=== PATIENT | female | born 1950 | race Caucasian/White ===

== ENCOUNTER 2017-10-07 21:00 | Emergency (ER) | payer MEDICARE, OTHER ==
[2017-10-07] MEDS ORDERED: Famotidine IV* 10 MG/ML 2 ML (20 mg) IV ONE (21:24)
[2017-10-07] MEDS ORDERED: Al Hydrox/Mg Hydrox/Simet LIQ* 30 ML UDC PO ONE (21:24)
[2017-10-07] MEDS ORDERED: Lidocaine 2% VISCOUS* 15 ML UDC PO ONE (21:24)
[2017-10-07 22:00] LABS: ABS Basophils 0.1 10^3/ul (0-0.2); ABS Eosinophils 0.1 10^3/ul (0-0.6); ABS Lymphocytes 2.3 10^3/ul (1.0-4.8); ABS Monocytes 1.4 10^3/ul (0-0.8); ABS Neutrophils 11.9 10^3/ul (1.5-7.7); ABS Nucleated RBC 0 10^3/ul; Eosinophil % 0.5 % (0-6); Hematocrit 41 % (35-47); Hemoglobin 14.1 g/dl (12.0-16.0); Lymphocyte % 14.4 % (25-47); Mean Corpuscular HGB Conc 34 g/dl (31-36); Mean Corpuscular Hemoglobin 31 pg (27-31); Mean Corpuscular Volume 89 fL (80-97); Mean Platelet Volume 8.7 um3 (7.4-10.4); Nucleated Red Blood Cells % 0; Platelet Count 289 10^3/ul (150-450); Red Cell Distribution Width 14 % (10.5-15); White Blood Count 15.8 10^3/ul (3.5-10.8)
[2017-10-07 22:20] LABS: EGFR Non-African American 65.6 (>60)
[2017-10-07] MEDS ORDERED: Ketorolac INJ* 30 MG/ML 1 ML VIAL IV PUSH ONE (22:43)
[2017-10-07] MEDS ORDERED: Morphine INJ* 2 MG/ML 1 ML CARPUJECT IV ONE (22:43)
[2017-10-07] MEDS ORDERED: Ondansetron INJ* 2 MG/ML VIAL ONE (23:37)
[2017-10-07] MEDS ORDERED: Ondansetron INJ* 2 MG/ML VIAL IV ONE (23:39)
[2017-10-08] MEDS ORDERED: Iohexol 300* (CONTRAST) 10 ML SDV IV ONE (00:37)
[2017-10-08 00:46] LABS: Urine Appearance Cloudy; Urine Blood Negative (Negative); Urine Color Amber; Urine Ketones Negative (Negative); Urine Protein Negative (Negative); Urine Specific Gravity 1.018 (1.010-1.030); Urine Urobilinogen Positive (Negative)
[2017-10-08 02:51] VITALS: BP 133/69
--- NOTE | 2017-10-08 10:18 | RAD ---
INDICATION: Syncopal episode. Midsternal chest and abdominal pain. History of uterine cancer. Post hysterectomy. COMPARISON: No relevant prior exams available on the [facility] PACS for comparison. TECHNIQUE: Multidetector CT images were obtained from the lung bases to the ischial tuberosities with 100 mL Omnipaque 300 IV contrast. Multiplanar reformation. REPORT: Unremarkable visualized inferior thorax. Decreased density of the liver consistent with fatty infiltration. Post cholecystectomy likely accounting for minimal intra and extrahepatic biliary dilatation. Alternatively seen medially directed diverticulum from the second segment of the duodenum may result in mass effect on the common bile duct accounting for the mild biliary dilatation. No focal hepatic lesions evident. Unremarkable pancreas and spleen. Negative for CT abnormality of the upper GI, small bowel, or retrocecal appendix. Mild colonic diverticulosis without findings of diverticulitis. Negative for ascites, free air, or significant hernias. Normal adrenal glands. Symmetric nephrograms. No focal renal lesions or hydronephrosis. Unremarkable nondilated ureters and largely decompressed urinary bladder. Post hysterectomy. Unremarkable adnexal regions. Negative for lymphadenopathy. Atherosclerotic calcification of normal diameter abdominal aorta and iliac arteries. Physiologic distention of the IVC. Lumbar sacral spine degenerative spondylosis and facet joint osteoarthritis. Negative for suspicious osseous lesions. IMPRESSION: 1. Fatty infiltration of the liver. 2. Post cholecystectomy likely accounting for minimal intra and extrahepatic biliary dilatation. Alternatively seen medially directed diverticulum from the second segment of the duodenum may result in mass effect on the common bile duct accounting for the mild biliary dilatation. 3. Normal appendix documented. Colonic diverticulosis without findings of diverticulitis. 4. Negative for obstructive uropathy. 5. Negative for lymphadenopathy or suspicious osseous lesions.
--- NOTE | 2017-10-12 22:52 | ED ---
Vincent Alonzo Sixian, scribed for Spike Chairez MD on 10/07/17 at 2126 . Abdominal Pain/Female - HPI Summary HPI Summary: This patient is a 66 year old F presenting to ED with a chief complaint of abdominal pain since earlier today. The CC is described as sharp pain, radiating in a square. The patient rates the pain 2/10 in severity. Symptoms aggravated and alleviated by nothing. Patient reports vomiting and a syncopal episode. Patient denies nausea. The pt has had 3 similar episodes this month, making her pass right out. She also had one drink at 1700 today. - History of Current Complaint Chief Complaint: EDAbdPain Stated Complaint: ABD PAIN Time Seen by Provider: 10/07/17 21:06 Hx Obtained From: Patient Hx Last Menstrual Period: menopausal Onset/Duration: Sudden Onset, Lasting Hours, Still Present Timing: Constant Severity Currently: Mild Pain Intensity: 2 Pain Scale Used: 0-10 Numeric Character: Sharp Aggravating Factor(s): Nothing Alleviating Factor(s): Nothing Associated Signs and Symptoms: Positive: Other: - . Patient reports vomiting and a syncopal episode. Patient denies nausea. Allergies/Adverse Reactions: Allergies Allergy/AdvReac Type Severity Reaction Status Date / Time MS Acetaminophen Allergy See Comment Verified 06/23/16 18:33 [From Percocet] MS Atorvastatin Allergy Muscle Ache Verified 06/23/16 18:35 [From Lipitor] MS Codeine [Codeine] Allergy Dizziness Verified 06/23/16 18:34 MS Oxycodone [From Percocet] Allergy See Comment Verified 06/23/16 18:33 PMH/Surg Hx/FS Hx/Imm Hx Endocrine/Hematology History: Reports: Hx Anticoagulant Therapy - She takes a baby aspirin daily., Hx Thyroid Disease Denies: Hx Diabetes Cardiovascular History: Reports: Hx Hypertension Denies: Hx Congestive Heart Failure, Hx Deep Vein Thrombosis, Hx Myocardial Infarction, Hx Pacemaker/ICD Respiratory History: Reports: Hx Asthma - She does not take her inhaler on a regular basis. Denies: Hx Chronic Obstructive Pulmonary Disease (COPD), Hx Lung Cancer, Hx Pneumonia, Hx Pulmonary Embolism GI History: Denies: Hx Gall Bladder Disease, Hx Gastrointestinal Bleed, Hx Ulcer, Hx Urosepsis History: Denies: Hx Kidney Stones, Hx Renal Disease Sensory History: Denies: Hx Hearing Aid Neurological History: Denies: Hx Dementia, Hx Migraine, Hx Seizures, Hx Transient Ischemic Attacks (TIA) Psychiatric History: Denies: Hx Anxiety, Hx Depression, Hx Panic Disorder, Hx Schizophrenia, Hx Bipolar Disorder - Cancer History Cancer Type, Location and Year: UTERINE CA Hx Chemotherapy: No Hx Radiation Therapy: No - Surgical History Surgery Procedure, Year, and Place: UTERINE CANCER,HYSTERECTOMY,TONSILECTOMY, SUB MUCUS RESECTION,D&C Infectious Disease History: No Infectious Disease History: Denies: Hx Clostridium Difficile, Hx Hepatitis, Hx Human Immunodeficiency Virus (HIV), Hx of Known/Suspected MRSA, Hx Shingles, Traveled Outside the [place] in Last 30 Days - Family History Known Family History: Positive: Cardiac Disease, Other - Alcoholism. Negative: Hypertension - Social History Alcohol Use: Weekly Substance Use Type: Reports: None Smoking Status (MU): Never Smoked Tobacco Review of Systems Positive: Abdominal Pain, Vomiting. Negative: Nausea Positive: Syncope All Other Systems Reviewed And Are Negative: Yes Physical Exam - Summary Physical Exam Summary: Appearance: Well-appearing, no distress, Well-nourished Skin: Warm, color reflects adequate perfusion Head: Normal Head/Face inspection Eyes: Conjunctiva clear ENT: Normal inspection Neck: Supple, no nodes, no JVD. Respiratory: Lungs clear, Normal breath sounds, no respiratory distress Cardio: RRR, No murmur, pulses normal, brisk capillary refill Abdomen: soft, no guarding, no rebound, epigastric pain/tenderness Bowel sounds: present, good Musculoskeletal: Strength Intact/ ROM intact. No calf tenderness. No edema. Neuro: Alert, muscle tone normal, facial symmetry, speech normal, sensory/motor intact Psychological: Normal Triage Information Reviewed: Yes Vital Signs On Initial Exam: Initial Vitals Temp Pulse Resp BP Pulse Ox 97.9 F 89 16 175/82 100 10/07/17 21:07 10/07/17 21:07 10/07/17 21:07 10/07/17 21:07 10/07/17 21:07 Vital Signs Reviewed: Yes Diagnostics - Vital Signs Vital Signs Temp Pulse Resp BP Pulse Ox 10/07/17 21:07 97.9 F 89 16 175/82 100 - Laboratory Lab Results: Lab Results 10/07/17 10/07/17 Range/Units 21:50 21:50 WBC 15.8 H (3.5-10.8) 10^3/ul RBC 4.60 (4.0-5.4) 10^6/ul Hgb 14.1 (12.0-16.0) g/dl Hct 41 (35-47) % MCV 89 (80-97) fL MCH 31 (27-31) pg MCHC 34 (31-36) g/dl RDW 14 (10.5-15) % Plt Count 289 (150-450) 10^3/ul MPV 8.7 (7.4-10.4) um3 Neut % (Auto) 75.6 (38-83) % Lymph % (Auto) 14.4 L (25-47) % [place] % (Auto) 9.1 H (0-7) % Eos % (Auto) 0.5 (0-6) % Baso % (Auto) 0.4 (0-2) % Absolute Neuts (auto) 11.9 H (1.5-7.7) 10^3/ul Absolute Lymphs (auto) 2.3 (1.0-4.8) 10^3/ul Absolute Monos (auto) 1.4 H (0-0.8) 10^3/ul Absolute Eos (auto) 0.1 (0-0.6) 10^3/ul Absolute Basos (auto) 0.1 (0-0.2) 10^3/ul Absolute Nucleated RBC 0 10^3/ul Nucleated RBC % 0 Sodium 139 (139-145) mmol/L Potassium 3.3 L (3.5-5.0) mmol/L Chloride 102 (101-111) mmol/L Carbon Dioxide 25 (22-32) mmol/L Anion Gap 12 H (2-11) mmol/L BUN 13 (6-24) mg/dL Creatinine 0.86 (0.51-0.95) mg/dL Est GFR ( Amer) 84.4 (>60) Est GFR (Non-Af Amer) 65.6 (>60) BUN/Creatinine Ratio 15.1 (8-20) Glucose 153 H (70-100) mg/dL Calcium 9.6 (8.6-10.3) mg/dL Total Bilirubin 1.10 H (0.2-1.0) mg/dL AST 108 H (13-39) U/L ALT 70 H (7-52) U/L Alkaline Phosphatase 113 H (34-104) U/L Total Protein 7.6 (6.4-8.9) g/dL Albumin 4.3 (3.2-5.2) g/dL Globulin 3.3 (2-4) g/dL Albumin/Globulin Ratio 1.3 (1-3) Lipase 23 (11.0-82.0) U/L Result Diagrams: 10/07/17 21:50 10/07/17 21:50 Lab Statement: Any lab studies that have been ordered have been reviewed, and results considered in the medical decision making process. - CT abd/pel CT Interpretation Completed By: Radiologist - CT abdomen pelvis reveals no localizing signs for acute pathology. ED physician has reviewed this radiology report. Re-Evaluation - Re-Evaluation First Eval Re-Evaluation Time: 22:44 Change: Worse Comment: Pt now complaining of worsening upper abdominal pain. Plan to give IV analgesia. will continue to monitor. Second Eval Re-Evaluation Time: 00:48 Change: Improved Comment: pt's abdominal pain resolved; pt resting comfortably in bed. Plan for Ct abdomen/pelv. will continue to monitor. Third Eval Re-Evaluation Time: 02:29 Change: Improved Comment: Pt continues to be pain free. pt tolerating po without difficulty. pt' s symptoms consistent with gastritis vs PUD. Plan for symptomatic tx with close GI f/u. Abdominal Pain Fem Course/Dx - Diagnoses Differential Diagnosis: Positive: Appendicitis, Diverticulitis, Gall Bladder Disease, Hepatitis, AL, Peptic Ulcer Disease, Renal Colic, Urinary Tract Infection Provider Diagnoses: Gastritis Discharge - Sign-Out/Discharge Documenting (check all that apply): Discharge - Discharge Plan Condition: Improved Disposition: HOME Prescriptions: Famotidine TAB* [Pepcid 20 MG TAB*] 20 mg PO BID 5 Days #10 tab traMADol TAB* [Ultram*] 50 mg PO Q6HR PRN #10 tab MDD 200mg PRN Reason: Pain Patient Education Materials: Gastritis (ED) Referrals: Tamanna Garcia MD [Primary Care Provider] - Bowen Shoemaker MD [Medical Doctor] - 3 Days Additional Instructions: RETURN TO THE EMERGENCY DEPARTMENT FOR CHANGING OR WORSENING SYMPTOMS. - Billing Disposition and Condition Condition: IMPROVED Disposition: HOME The documentation as recorded by the Vincent sage Sixian accurately reflects the service I personally performed and the decisions made by me, Spike Chairez MD.
== END 2017-10-08 02:50 | disposition home or self-care (01) ==
LOC: ED 21:00
DX: K29.70 Gastritis, unspecified, without bleeding (principal); R10.9 Unspecified abdominal pain; R11.10 Vomiting, unspecified; R55 Syncope and collapse; Z79.01 Long term (current) use of anticoagulants; Z79.82 Long term (current) use of aspirin
CPT/HCPCS: 36415; 74177; 80053; 81003; 83690; 84484; 85025; 99285; A9270-GY; J1885; J2270; J2405; Q9967

== ENCOUNTER 2017-10-25 14:22 | Observation (INO) | payer MEDICARE, OTHER ==
[~2017-10-25 14:22] MED LIST: Buffered Lidocaine 0.9% SYRIN* 5 ML/SYR SYRINGE INTRADERM ONE; Famotidine IV* 10 MG/ML 2 ML (20 mg) IV ONE; Scopolamine 1.5 mg* PATCH TRANSDERM ONE
[2017-10-25] MEDS ORDERED: Scopolamine 1.5 mg* PATCH ONE (14:45)
[2017-10-25] MEDS ORDERED: Famotidine TAB* 20 MG ONE (14:45)
[2017-10-25] MEDS ORDERED: Buffered Lidocaine 0.9% SYRIN* 5 ML/SYR SYRINGE ONE (14:45)
[2017-10-25] MEDS ORDERED: Midazolam* 1 MG/ML 5 ML VIAL (5 MG) ONE (15:43)
[2017-10-25] MEDS ORDERED: Ondansetron INJ* 2 MG/ML VIAL ONE (15:43)
[2017-10-25] MEDS ORDERED: Lidocaine 2% PF * 5 ML VIAL ONE (15:43)
[2017-10-25] MEDS ORDERED: Succinylcholine* 20 MG/ML 10 ML VIAL ONE (15:43)
[2017-10-25] MEDS ORDERED: Propofol* 10 MG/ML 20 ML BTL IV PUSH ONE ×2 (15:43→17:37)
[2017-10-25] MEDS ORDERED: DiMENhydriNATE IV* 50 MG/ML VIAL ONE (15:43)
[2017-10-25] MEDS ORDERED: fentaNYL* 50 MCG/ML 2 ML VIAL (100 MCG VIAL) ONE (15:43)
[2017-10-25] MEDS ORDERED: Dexamethasone IV* 4 MG/ML 1 ML (4 MG) ONE (15:43)
[2017-10-25] MEDS ORDERED: DiMENhydriNATE IV* 50 MG/ML VIAL IV PUSH PRN (16:15)
[2017-10-25] MEDS ORDERED: Acetaminophen IV 1GM/100ML * 1,000 MG/100 ML VIAL IVPB ONE (16:15)
[2017-10-25] MEDS ORDERED: Naloxone* 0.4 MG/ML 1 ML VIAL IV PRN (16:15)
[2017-10-25] MEDS ORDERED: HYDROmorphone INJ* 1 MG/ML CARPUJECT SYRINGE IV PRN (16:15)
[2017-10-25] MEDS ORDERED: Indomethacin SUPP(NF) 50 MG SUP PR ONE (18:11)
--- NOTE | 2017-10-25 18:44 | RAD ---
INDICATION: Common bile duct stone. COMPARISON: Comparison is made with a prior CT of the abdomen and pelvis from October 08, 2017 and a prior MRCP study from October 17, 2017. TECHNIQUE: An ERCP exam was performed by Dr. Shoemaker. Multiple spot films of the right upper quadrant were obtained. Proximally 1 minute and 34 seconds of intermittent fluoroscopic guidance was provided during the exam. FINDINGS: There is opacification of the common hepatic and bile ducts and multiple intrahepatic ducts. The patient is status post cholecystectomy. Subsequently a balloon catheter was placed and a sweep of the extrahepatic ducts was performed. The common bile duct appears moderately distended correlating with the prior CT study. IMPRESSION: ERCP CONTROL FILMS. CPT II Codes: G9500
[2017-10-25] MEDS ORDERED: D5W 1/2 NS 1000 ML BAG* 1,000 ML IV SCH (23:00)
[2017-10-26] MEDS ORDERED: Levothyroxine TAB* 125 MCG TAB PO SCH (06:00)
[2017-10-26 07:38] LABS: EGFR Non-African American 66.5 (>60)
[2017-10-26 08:34] VITALS: BP 127/71
[2017-10-26] MEDS ORDERED: Lisinopril TAB* 10 MG PO SCH (09:00)
--- NOTE | 2017-10-26 10:28 | PRO ---
DATE: 10/25/17 - ROOM #[id number] REFERRING PHYSICIAN: Tamanna Garcia * PROCEDURE: Upper gastrointestinal endoscopy diagnostically; ERCP with sphincterotomy and then balloon sweeps common bile duct x2. INDICATION: This 66-year-old woman has been having attacks of pain similar to what she had prior to her cholecystectomy. The area of the subxiphoid pain radiating bilaterally. Imaging has shown a dilated common duct and MRCP 1 week ago showed 2 mm distal common bile duct stone. This was reviewed with the radiologist. There was also duodenal diverticulum. With one of the attacks, her LFTs were up. Late last week, she had another episode and this time with vomiting the first time. LFTs yesterday were normal. Informed consent was obtained during discussion in the office 2 weeks ago supplemented by yesterday and pre-procedure today. ENDOSCOPIST: Dr. Shoemaker. ESOPHAGOGASTRODUODENOSCOPY: Larynx - Not seen as she was intubated. Esophagus - Speckled exudate present from about 18 to 26, it is quite consistent with mild candidiasis. The distal esophagus appeared normal. Stomach - Generally normal mucosa in the cardia, fundus, body, and antrum. No abnormalities noted. A CLOtest is taken. Duodenum - Pylorus, bulb, and second through forth portions were normal. ERCP - The ERCP scope was passed orally. There was little space so she has a small mouth as commented on by Dr Goddard. Duodenum - The papilla was clearly seen in the middle of a diverticulum, two- thirds to the left, one-third to the right. Positioning appeared quite satisfactory. The sphincterotome was then positioned and a guidewire cannulation done. This went to a pancreatic position and was withdrawn. No dye was injected. Attempts to cannulate more cephalad and to the left impacted the sphincterotome. Then different orientation with the guidewire cannulation was attempted and this slid in nicely towards the liver and fairly a free common bile duct cannulation was achieved. Dye was injected. No filling defect was documented, though with the sphincterotome deeply seated dye seemed to spill through the distal duct and papilla. It was therefore difficult to get visualization distally. The sphincterotomy was done at setting of 200, effect 3 with no bleeding encountered. The cut went upward in the orientation of the visualized common bile duct impression. Dye was spilling readily. A balloon catheter was then inserted and this was inflated in the proximal common duct and brought through at 12 mm. At the level of the sphincterotomy, it was decreased to 10-1/2 mm and popped through. No stone or gravel was seen. A second passage was done, this with the balloon occlusion cholangiogram included very distal views. No stone was seen. Dye was draining spontaneously and the procedure was terminated. Immediately postprocedure, she received indomethacin suppository. IMPRESSION: 1. Minimal proximal esophageal candidiasis. 2. Clinical gastroesophageal reflux disease - she is on maintenance Nexium. Addendum: Clotest negative 3. Duodenal diverticulum - no retained material. 4. Status post endoscopic sphincterotomy. 5. Attacks of epigastric pain - clinically most consistent with biliary colic and her course will be followed. She will be admitted for observation. [id number]/[facility] #: [id number] MTDD
--- NOTE | 2017-11-02 13:15 | DS ---
CC: Bowen Shoemaker MD; Tamanna Garcia MD GASTROENTEROLOGY DISCHARGE REPORT: DATE OF ADMISSION: 10/25/17 DATE OF DISCHARGE: 10/26/17 ADMITTING PHYSICIAN: Bowen Shoemaker MD PRIMARY CARE PHYSICIAN: Tamanna Garcia MD DISCHARGE DIAGNOSIS: Epigastric pain, status post endoscopic retrograde cholangiopancreatography and sphincterotomy. DISCHARGE SUMMARY: Ms. No had presented to the emergency room couple of weeks prior with epigast chao pain. She was noted to have a 2 mm stone in her distal common bile duct on MRCP. The patient wa s followed up in the office with Dr. Shoemaker and the patient continued to have ongoing issues. Her l iver function tests were normal. ERCP was decided as the course of action and the patient was lita t in on 10/25/17 to undergo ERCP. A 1 cm sphincterotomy was performed and the duct was swept twice w ith the 10 mm balloon. No debris or stones were removed. It was assumed that the stone had passed s pontaneously. The patient tolerated the procedure well. She was kept overnight for monitoring. On 10/26/17, the patient had no complaints of any pain. She was tolerating p.o. Her lipase was normal as were her liver function tests. The patient was therefore discharged home. Discharge Diagnosis: Status post endoscopic retrograde cholangiopancreatography. ALLERGIES: MORPHINE, ACETAMINOPHEN, ATORVASTATIN, CODEINE, OXYCODONE. DISPOSITION: Patient was discharged to home, self-care with family. Condition on discharge was good . DISCHARGE MEDICATIONS: Include: 1. Lisinopril 10 mg daily. 2. Levothyroxine 125 mcg daily. 3. Mckenna 180 mg every day. 4. Nexium 40 mg daily. 5. Tramadol 50 mg q.6 hours as needed. 6. Crestor 5 mg daily. 7. Aspirin 81 mg daily. Followup instructions are to see Dr. Shoemaker in 2 weeks. The patient will remain on a low fiber, low fat diet. [id number]/[facility] #: [id number]
== END 2017-10-26 12:25 | disposition home or self-care (01) ==
LOC: OR 14:22 → SSU 22:04
PROVIDERS: ADMIT Internal Medicine Gastroenterology; ATTEND Internal Medicine
PROC: 0F798ZZ Dilation of Common Bile Duct, Via Natural or Artificial Opening Endoscopic (ICD-10-PCS; principal; 2017-10-25 15:30)
DX: B37.81 Candidal esophagitis (principal); K21.9 Gastro-esophageal reflux disease without esophagitis; K57.10 Diverticulosis of small intestine without perforation or abscess without bleeding; R10.13 Epigastric pain; Z79.82 Long term (current) use of aspirin; R94.5 Abnormal results of liver function studies; K80.50 Calculus of bile duct without cholangitis or cholecystitis without obstruction
CPT/HCPCS: 36415; 74330; 80053; 83690; 87077; 96374; A9270-GY; C1769; G0378; J0330; J1100; J1240; J2250; J2405; J2704; J3010

== ENCOUNTER 2019-02-10 08:23 | Emergency (ER) | payer MEDICARE, OTHER ==
--- OUTSIDE RECORDS SUMMARY | 2019-02-10 08:30 | XMS REPORT | Continuity of Care Document ---
:1950 Author Organization [facility] Address [address], [place] [id number] Phone Care Team Providers Name Role Phone Laz Jaramillo PA-C Unavailable Unavailable Allergies, Adverse Reactions, Alerts Substance Reaction Status azithromycin Active OXYCODONE HCL Active acetaminophen Active codeine Active Medications Medication Instructions Dosage Effective Dates Status Comments (start - stop) DULOXETINE 20MG CAP TAKE 1 CAPSULE BY 20 MG - Active MOUTH EVERY DAY naproxen sodium 220 mg take 1 tablet by oral 220 MG - Active tablet route every 12 hours as needed Crestor 5 mg tablet take 1 tablet by oral - Active route every other day lisinopril 20 mg take 1 tablet by oral 20 MG - Active tablet route every day acetaminophen 500 mg take 2 tablet by oral 1000 MG - Active tablet route every 4 - 6 hours as needed not to exceed 8 tablets per 24hrs Levoxyl 125 mcg tablet take 1 tablet by oral 125 MCG - Active route every day Problems Condition Effective Dates (start - Clinical Status Comments stop) Polyosteoarthritis Trochanteric bursitis of left hip Polyosteoarthritis Polyosteoarthritis Other specified abnormal findings of blood chemistry Polyosteoarthritis Polyosteoarthritis Polyosteoarthritis Trochanteric bursitis of left hip Polyosteoarthritis Pain in left hip Trochanteric bursitis of left hip Polyosteoarthritis Disorder of bone density Oth disrd of bone density and structure, multiple sites Polyosteoarthritis Trochanteric bursitis of left hip Disorder of bone density Pain in left hip Polyosteoarthritis Asthma Active Cancer Active Osteoarthritis Active High Blood Pressure Active Hypothyroidism Active Procedures Procedure Date No information Results Test Name Date and Time Measure Units Reference Range Abnormal Flag Status Comments No information Advance Directives Directive Yes / No Effective Date File Name No information Encounters Encounter Practice Location Reason(s) Diagnoses Date Provider Providers Description For Visit Copied on Encounter Arthritis Arthritis [facility] PA-C Associates Jonnathan 9 [facility], 5794 PLLC 5794 [facility], [place], [place], [id number], [id number], [place]. tel:[phone] tel:[phone] Arthritis Arthritis Polyosteoarthri [facility] PA-C Provider: Jonnathan Nesbitt. [facility], 5794 PLLC 5794 Radha MERINO [facility], [address] [place] [address], [place], [facility], [place], , [place], [place], [place], [id number], [id number], [place], [address]. [place]. tel:+60 tel:+[phone] tel:[phone] Arthritis Arthritis [facility] PA-C Associates Associates 9 [facility], 5794 PLLC 5794 [facility], [place], [place], [place], [place], [id number], [id number], [place]. tel:[phone] tel:[phone] Arthritis Arthritis Trochanteric May- Tara MERINO [facility] bursitis [place]. Provider: Jonnathan rooney 9 5794 [facility], 5794 PLLC hipPolyashantioart Antonia Garcia MD [facility], [address] [place] [address], [place], [facility], , [place], [id number], [place], [id number], [place], [address]. [place] tel:[phone] tel:[phone] tel:[phone] Arthritis Arthritis Polyosteoarthri [facility] tis PA-C Provider: Jonnathan De Santiago 8 Laz. [facility], 5794 PLLC 5794 Radha MERINO [facility], [address] [place] [address], [place], [address] [place], [place], [id number], [id number], [place], [address]. [place]. tel:+607 tel:+4 tel:+ [phone] Arthritis Arthritis Other specified Jan- [facility] abnormal 0-201 PA-C Associates Associates findings of 8 Laz. PLL[facility], 5794 PLLC blood chemistry 5794 [facility], [place], [place], [place], [place], [place], [id number], [id number], [place]. tel:[phone] tel:+ [phone] Arthritis Arthritis Polyosteoarthri [facility] tis 0-201 PA-C Provider: Associates Associates 8 Laz. [facility], 5794 PLLC 5794 Radha MERINO [facility], [address] [place], [place], [address] [place], [place], [id number], [id number], [place], [address]. [place]. tel:+60 tel:+ tel:+ [phone] Arthritis Arthritis Polyosteoarthri Oct- [facility] tis 0-201 PA-C Provider: Associates Associates 8 Laz. [facility], 5794 PLLC 5794 Radha MERINO [facility], [address] [place], [place], [address] [place], [place], [place], [id number], [id number], [place], [address]. [place]. tel:+607 tel:+4 tel:+ [phone] Arthritis Arthritis Polyosteoarthri Jun- [facility] tisTrochanteric 2-201 PA-C Provider: Associates Associates bursitis of 7 Laz. [facility], 5794 PLLC left hip 5794 [facility], [address] [place], [place], [address], [place], [place], [place], [place], [id number], [id number], [place], [address]. [place]. tel:+60 tel:[phone] tel:+ [phone] Arthritis Arthritis Polyosteoarthri Sep-2 [facility] tis 0-201 PA-C Provider: Jonnathan Martinez Laz. [facility], 5794 PLLC 5794 [facility], [address] [place], [place], [place], [address] [place], [place], [place], [place], [id number], [id number], [place], [address]. [place]. tel:+60 tel:+ tel:+ [phone] Arthritis Arthritis Pain in left Mata-0 [facility] hipTrochanteric 2-201 PA-C Provider: Jonnathan De Santiago bursitis of [address] [place] [address]. [facility], 5794 PLLC left hip 5794 [facility], [address] [place], [place], [place], [place] [place], [place], [place], [place], [id number], [id number], [place], [address]. [place]. tel:+60 tel:+[phone] tel:+ [phone] Arthritis Arthritis Polyosteoarthri May-0 [facility] tisDisorder of 3-201 PA-C Provider: Jonnathan De Santiago bone densityOth [address] [place] [address]. [facility], 5794 PLLC disrd of bone [facility], [address] [place], [facility], [place], [address] [place], multiple sites [address] [place], [place], [place], [place], [id number], [id number], [place], [address]. [place]. tel:+[phone] tel:+[phone] tel:[phone] Arthritis Arthritis Polyosteoarthri [facility] Referring [facility] tis PA-C Provider: Associates Jonnathan Nesbitt. [facility] PLL[facility], 5794 PLLC 5794 Radha MERINO [facility], [address] [place] [address], [place], [facility], , [place], [place], [place], [id number], [id number], [place], [address]. [place]. tel:+[phone] tel:+[phone] tel:[phone] Arthritis Arthritis Trochanteric Tara MERINO Referring [facility] bursitis of [place]. Provider: Jonnathan De Santiago [facility] 6 5794 [facility], 5794 PLLC hipDisorder of [facility] Radha MERINO [facility] bone density [place], , [address] [place] [address], [place], [facility], [place], , [place], [id number], [place], [id number], . [place], [address]. [place] tel:+[phone] tel:+[phone] tel:[phone] Arthritis Arthritis Pain in left Tara MERINO [facility] hipPolyosteoart [place]. Provider: Jonnathan De Santiago itis 6 5794 [facility], 5794 PLLC Antonia Garcia MD [facility], , [address] [place] [address], [facility], [place], , [place], [id number], [place], [id number], . [place], [address]. [place] tel:[phone] tel:+[phone] tel:[phone] Arthritis Arthritis November- Rayo MERINO [facility] Hannah. 5794 Provider: Jonnathan De Santiago 1 Antonia Wade PLLC, 5794 PLLC [place], [place], [facility], [address] [place], [place], [facility], [id number], [place], [place], [place], [address]. [id number], tel:[phone] tel:[phone] tel:[phone] Family History Family Member Diagnosis Age At Onset Sister Osteoarthritis Sister Crohn's disease Mother Osteoarthritis Immunizations Vaccine Date Status Comments Influenza, injectable, MDCK, administered Source: Other Provider Flucelvax Quad 2017-2018Y Influenza, injectable, trivalent, administered Source: Other Provider split virus, 4 years and older, Fluvirin 2117-7669 Influenza, injectable, trivalent, administered Source: Other Provider split virus, 4 years and older, Fluvirin 2837-9733 Pneumococcal polysaccharide PPV23 administered Source: Other Provider Payers Payer name Insurance type Covered libertarian ID Authorization(s) Medicare MB [id number] Aetna No Referral Required CI [id number] Social History Type Description Quantity Date Captured Comments Alcohol Use Details Unknown Caffeine Use Details Unknown Tobacco Use Status Unknown Smoking Status Unknown Sex Female Vital Signs Date / Height Weight BMI Pulse Blood Temperature Respiratory Body Head BMI Pulse Inhaled Time: Rate Pressure Rate Surface Circumference percentile Ox Ox Area No information Chief Complaint And Reason For Visit No information Reason For Referral Reason For Referral No information Plan Of Treatment Date Type Action Status Referral Ordered: ordered *KNEE X-RAY, 1 OR 2 VIEWS Left Appointment date/timeframe: 01/30/2019 Referral Ordered: ordered *DXA BONE DENSITY, AXIAL Referral Ordered: ordered *HIP, XRAY UNILATERAL PELVIS, 2 - 3 VIEW Left Appointment Hannah No BOOKED History Of Present Illness Encounter Date Complaint History Of Present Illness No information Functional Status Date Functional Assessment No information Medications Administered Medication Instructions Dosage Effective Dates (start - stop) Status Comments No information Instructions Date Instruction Additional Information Risks/benefits of medications reviewed Discussed / Reviewed Labs hold medication and call if any side effect develops call if symptoms worsen Risks/benefits of medications reviewed Labs ordered to check disease activity. Labs ordered to check blood counts, liver and kidney functions to monitor safety of medication. Discussed / Reviewed Labs call if symptoms worsen Risks/benefits of medications reviewed Conservative medical care measures discussed. Moderate activities regarding symptomatic joints. Call if symptoms return call if symptoms worsen Risks/benefits of medications reviewed Post injection care reviewed, instructions given call if symptoms worsen Risks/benefits of medications reviewed call if symptoms worsen Risks/benefits of medications reviewed Post injection care reviewed, instructions given call if symptoms worsen Risks/benefits of medications reviewed Diet: Instructed on appropriate calcium and vitamin D intake. Conservative medical care measures discussed. Moderate activities regarding symptomatic joints. Educated regarding diagnosis and treatment options. call if symptoms worsen
--- OUTSIDE RECORDS SUMMARY | 2019-02-10 08:30 | XMS REPORT | Continuity of Care Document ---
:1950 Author Organization [facility] Address [address], [place] [id number] Phone Care Team Providers Name Role Phone Laz Jaramillo PA-C Unavailable Unavailable Allergies, Adverse Reactions, Alerts Substance Reaction Status azithromycin Active OXYCODONE HCL Active acetaminophen Active codeine Active Medications Medication Instructions Dosage Effective Dates Status Comments (start - stop) DULOXETINE 20MG TAKE 1 CAPSULE BY 20 MG - Active CAP MOUTH EVERY DAY naproxen sodium 220 take 1 tablet by 220 MG - Active mg tablet oral route every 12 hours as needed Crestor 5 mg tablet take 1 tablet by - Active oral route every other day lisinopril 20 mg take 1 tablet by 20 MG - Active tablet oral route every day acetaminophen 500 mg take 2 tablet by 1000 MG - Active tablet oral route every 4 - 6 hours as needed not to exceed 8 tablets per 24hrs Levoxyl 125 mcg take 1 tablet by 125 MCG - Active tablet oral route every day Nexium 20 mg take 1 capsule by - No Longer capsule,delayed oral route every Active release day Problems Condition Effective Dates (start - [...] Pressure Active Hypothyroidism Active Procedures Procedure Date OFFICE/OUTPATIENT VISIT, EST Results Test Name Date and Time Measure Units Reference Range Abnormal Flag Status Comments No information Advance Directives Directive Yes / No Effective Date File Name No information Encounters Encounter Practice Location Reason(s) For Diagnoses Date Provider Providers Description Visit Copied on Encounter OFFICE/OUTPA Arthritis Arthritis Osteoarthriti Polyosteoart [facility] (chief hritis PA-C Provider: HAWA De Santiago complaint) 9 Laz. [facility], 5794 PLLC 5794 [facility], [address] [place] [address], [place], [place], [place], , [place], [place], [place], [id number], [id number], [place], [address]. [place] tel:+[phone] tel:[phone] tel:[phone] Arthritis Arthritis [facility] PA-C Associates Jonnathan 9 Laz. PLLC, 5794 PLLC 5794 [facility], [place], [place], [place], [id number], [id number], [place] tel:[phone] tel:[phone] Arthritis Arthritis Trochanteric November- Tara MERINO [facility] bursitis of [place]. Provider: Jonnathan De Santiago left 9 5794 [facility], 5794 PLLC Mayi Garcia MD [facility] arthritis [facility], [address] [place] [address], [facility], [place], , [place], [id number], [place], [id number], [place], [address]. [place] tel:[phone] tel:[phone] tel:[phone] Arthritis Arthritis Polyosteoart [facility] hritis PA-C Provider: Jonnathan Nolen PLLC, 5794 PLLC 5794 Radha Knight , [address] [place] [address], [place], [place], [place] [place], [place], [place], [place], [id number], [id number], [place], [address]. [place] tel:+607 tel:+4 tel:+ [phone] Arthritis Arthritis Other Jan- [facility] specified 0-201 PA-C Associates Jonnathan Nesbitt. PLLC, 5794 PLLC findings of 5794 [facility], chemistry [place], [place], [place], [place], [id number], [id number], [place]. tel:[phone] tel:[phone] Arthritis Arthritis Polyosteoart [facility] hritis 0-201 PA-C Provider: Jonnathan Nesbitt. [facility] PLL[facility], 5794 PLLC 5794 Radha MERINO [facility], 8 [place], [place], [address] [place], [place], [place], [id number], [id number], [place], [address]. [place]. tel:+607 tel:+4 tel:[phone] Arthritis Arthritis Polyosteoart [facility] hritis 0-201 PA-C Provider: Jonnathan Nesbitt. [facility] PLL[facility], 5794 PLLC 5794 Radha MERINO [facility], 8 [place], [place], [address] [place], [place], [id number], [id number], [place], [address]. [place]. tel:+607 tel:+[phone] tel:[phone] Arthritis Arthritis Polyosteoart Jun- [facility] hritisTrocha 2-201 PA-C Provider: Jonnathan murillo 7 Laz. Tamanna PLLC, 5794 PLLC bursitis of 5794 Radha MERINO [facility] left hip [facility], [address] [place], [place], [address] [place], [place], [place], [id number], [id number], [place], [address]. [place]. tel:+[phone] tel:+[phone] tel:[phone] Arthritis Arthritis Polyosteoart Sep-2 [facility] Referring [facility] Health hritis 0-201 PA-C Provider: Jonnathan Nesbitt. Tamanna PLLC, 5794 PLLC 5794 Radha MERINO [facility], [address] [place], [place], [address] [place], [place], [id number], [id number], [place], [address]. [place]. tel:+[phone] tel:[phone] tel:[phone] Arthritis Arthritis Pain in left Mata-0 [facility] Referring [facility] hipTrochante 2-201 PA-C Provider: Jonnathan Nesbitt. Tamanna PLLC, 5794 PLLC of left hip 5794 Radha MERINO [facility], [address] [place] [address], [place], [place] [place], [place] [place], [place], [place], [place], [id number], [id number], [place], [address]. [place]. tel:+[phone] tel:[phone] tel:[phone] Arthritis Arthritis Polyosteoart May-0 [facility] Referring [facility] Health hritisDisord 3-201 PA-C Provider: Jonnathan De Santiago er of bone Michelle Nesbitt. Tamanna PLLC, 5794 PLLC densityOth 5794 Radha MERINO [facility], 8 [place], bone density [place], [place] [address] [place], [place], [facility], [place], [place], [id number], [facility] [id number], [place], [address]. [place] sites [place]. tel:[phone] tel:[phone] tel:[phone] Arthritis Arthritis Polyosteoart Itz-0 [facility] Referring [facility] Health hritis 9-201 PA-C Provider: Jonnathan Nesbitt. Tamanna PLLC, 5794 PLLC 5794 Radha [facility], 8 [place], [facility], [place], , [place], [place], [place], [id number], [id number], [place], [address]. [place] tel:+60 tel:[phone] tel:[phone] Arthritis Arthritis Trochanteric Tara MERINO Referring [facility] bursitis of [place]. Provider: Associates Associates left 6 5794 Tamanna PLLC, 5794 PLLC hipDisorder Antonia Garcia MD [facility], , [address] [place], [facility], [facility], [place], , [place], [id number], [place], [id number], . [place], [address]. [place] tel:+[phone] tel:+607 tel:+ [phone] Arthritis Arthritis Pain in left Tara MERINO Referring [facility] hipPolyosteo [place]. Provider: Associates Jonnathan arthritis 6 5794 Tamanna PLLC, 5794 PLLC Antonia Garcia MD [facility], , [address] [place] [address], [facility], [place], , [place], [id number], [place], [id number], . [place], [address]. [place] tel:+[phone] tel:+60 tel:+ [phone] Arthritis Arthritis Rayo MERINO Referring [facility]. 5794 Provider: Associates Jonnathan 1 [facility], 5794 PLLC [place], [place], [facility], [address] [place], [place], [facility], [id number], [place], [place], [address]. [id number], tel:[phone] tel:[phone] tel:[phone] Family History Family Member Diagnosis Age At Onset Sister Osteoarthritis Sister Crohn's disease Mother Osteoarthritis Immunizations Vaccine Date Status Comments Influenza, injectable, MDCK, administered Source: Other Provider Flucelvax Quad 2017-2018Y Influenza, injectable, trivalent, administered Source: Other Provider split virus, 4 years and older, Fluvirin 5455-2451 Influenza, injectable, trivalent, administered Source: Other Provider split virus, 4 years and older, Fluvirin 4951-4589 Pneumococcal polysaccharide PPV23 administered Source: Other Provider Payers Payer name Insurance type Covered constitution party ID Authorization(s) Medicare MB [id number] Aetna No Referral Required [id number] Social History Type Description Quantity Date Captured Comments Alcohol Use Details wine 2 drinks occasion Caffeine Use Details No Tobacco Use Status Never smoked tobacco Smoking Status Never smoker Non-Smoking Tobacco : No Details Available : No Details Available 2018 Use Details Sex Female Vital Signs Date / Height Weight BMI Pulse Blood Temperature Respiratory Body Head BMI Pulse Inhaled Time: Rate Pressure Rate Surface Circumference percentile Ox Ox Area 66.25 170.00 27.2 134/2019 in lbs 3 mm[Hg] 10:28 kg/m AM eter (2) Chief Complaint And Reason For Visit Most recent encounter only, dated '01/30/2019 10:40'. Osteoarthritis ( chief complaint). Description: The pain severity is 7/10. Patient denies having generalized morning stiffness, abdominal pain, hair loss, diarrhea, infection, loss of appetite, fever, fatigue, rash, Raynaud's, weight loss, pleuritic pain and shortness of breath. Reason For Referral Reason For Referral No information Plan Of Treatment Date Type Action Status Referral Ordered: ordered *KNEE X-RAY, 1 OR 2 VIEWS Left Appointment date/timeframe: 01/30/2019 Referral Ordered: ordered *DXA BONE DENSITY, AXIAL Referral Ordered: ordered *HIP, XRAY UNILATERAL PELVIS, 2 - 3 VIEW Left Appointment Hannah No BOOKED History Of Present Illness Encounter Date Complaint History Of Present Illness Osteoarthritis The pain severity is 7/10. Patient denies having generalized morning stiffness, abdominal pain, hair loss, diarrhea, infection, loss of appetite, fever, fatigue, rash, Raynaud's, weight loss, pleuritic pain and shortness of breath. Functional Status Date Functional Assessment No information [...]
[2019-02-10 08:40] VITALS: BP 166/80
--- NOTE | 2019-02-10 09:39 | UC ---
Complaint Female HPI - HPI Summary HPI Summary: 68 year old female presents with increased urinary frequency, urgency, lower abdominal pain. No hematuria, no burning iwth urination. no recent ab use, no recent h/o UTIs, did have one several years ago. no change in behaviors. no fever, chills, flank pain - History Of Current Complaint Chief Complaint: UCGU Stated Complaint: BLADDER ISSUES Time Seen by Provider: 02/10/19 08:33 Hx Obtained From: Patient Hx Last Menstrual Period: menopausal ?: No Onset/Duration: Sudden Onset, Lasting Days - 24 hours Timing: Constant Severity Initially: Moderate Severity Currently: Moderate Pain Intensity: 7 Pain Scale Used: 0-10 Numeric Character: Cramping Aggravating Factor(s): Nothing Alleviating Factor(s): Nothing Associated Signs And Symptoms: Negative: Fever, Back Pain, Vaginal Bleeding/ Discharge, Vaginal Discharge, Nausea, Vomiting(# Of Episodes =), Genital Swelling, Genital Blisters - Allergies/Home Medications Allergies/Adverse Reactions: Allergies Allergy/AdvReac Type Severity Reaction Status Date / Time morphine Allergy Severe Nausea And Verified 10/25/17 14:57 Vomiting acetaminophen [From Percocet] Allergy Unknown Verified 10/25/17 22:15 Reaction Details atorvastatin Allergy Muscle Ache Verified 10/25/17 22:15 azithromycin Allergy GI Upset Verified 02/10/19 08:40 codeine Allergy Dizziness Verified 10/25/17 22:15 oxycodone [From Percocet] Allergy Unknown Verified 10/25/17 22:15 Reaction Details Home Medications: Home Medications Cholecalciferol (Vitamin D3) [Vitamin D3] 1 tab PO DAILY 02/10/19 [History Confirmed 02/10/19] DULoxetine CAP* [Cymbalta CAP*] 20 mg PO DAILY 02/10/19 [History Confirmed ] Ibuprofen 400 mg PO DAILY PRN 02/10/19 [History Confirmed 02/10/19] PMH/Surg Hx/FS Hx/Imm Hx Previously Healthy: Yes Other History Of: Anticoagulant Therapy - She takes a baby aspirin daily. Negative For: HIV, Hepatitis B, Hepatitis C - Surgical History Surgical History: Yes Surgery Procedure, Year, and Place: UTERINE CANCER,HYSTERECTOMY,TONSILECTOMY, SUB MUCUS RESECTION,D&C. Cholecystectomy, bile duct surgery - Family History Known Family History: Positive: Cardiac Disease, Other - Alcoholism. Negative: Hypertension - Social History Alcohol Use: Weekly Substance Use Type: None Smoking Status (MU): Never Smoked Tobacco Review of Systems All Other Systems Reviewed And Are Negative: Yes Constitutional: Positive: Negative Genitourinary: Positive: Frequency, Urgency. Negative: Dysuria, Hematuria Motor: Positive: Negative Psychological: Positive: Negative Is Patient Immunocompromised?: No Physical Exam Vital Signs: Initial Vital Signs Temp 98.5 F 02/10/19 08:35 Pulse 103 02/10/19 08:35 Resp 18 02/10/19 08:35 BP 166/80 02/10/19 08:35 Pulse Ox 100 02/10/19 08:35 Complaint Female Dx - Course Course Of Treatment: U/A + for lueks, blood, sent for cultures Urinary tract infection - Increase fluid intake - Antibiotics as directed - Cultures sent, will return in 1-2 days - GO to ER with flank pain, fever > 101, increased abdominal pain - tylenol/motrin as needed for pain, cramping - FOllow up with primary Tuesday if symptoms not improved - Differential Dx/Diagnosis Differential Diagnosis/HQI/PQRI: Pelvic Inflammatory Disease, Urinary Tract Infection Provider Diagnosis: UTI (urinary tract infection) Discharge - Sign-Out/Discharge Documenting (check all that apply): Patient Departure All imaging exams completed and their final reports reviewed: No Studies - Discharge Plan Condition: Good Disposition: HOME Prescriptions: Nitrofurantoin Monohyd/M-Cryst [Macrobid 100 mg Capsule] 100 mg PO BID #10 cap Patient Education Materials: Urinary Tract Infection in Women (DC), Nitrofurantoin (By mouth) Referrals: Tamanna Garcia MD [Primary Care Provider] - Additional Instructions: Urinary tract infection - Increase fluid intake - Antibiotics as directed - Cultures sent, will return in 1-2 days - GO to ER with flank pain, fever > 101, increased abdominal pain - tylenol/motrin as needed for pain, cramping - FOllow up with primary Tuesday if symptoms not improved - Billing Disposition and Condition Condition: GOOD Disposition: Home
== END 2019-02-10 09:51 | disposition home or self-care (01) ==
LOC: UCEAST 08:23
DX: N39.0 Urinary tract infection, site not specified (principal); Z88.5 Allergy status to narcotic agent
CPT/HCPCS: 81002; 87086; 87088; 99212; G0463